=== PATIENT | female | born 1995 | race American Indian/Alaskan Native ===

== ENCOUNTER 2022-11-29 17:13 | Emergency (ER) | payer OTHER ==
[2022-11-29] MEDS ORDERED: Ketorolac 30 MG/ML SDV IVPUSH ONE (17:24)
[2022-11-29] MEDS ORDERED: Ondansetron 4 MG/2 ML SDV IVPUSH ONE (17:24)
[2022-11-29] MEDS ORDERED: Sodium Chloride 0.9% 1,000 ML IV ONE (17:24)
[2022-11-29] MEDS ORDERED: Iopamidol 612 MG/ML 100 ML Bottle IVPUSH ONE (17:29)
[2022-11-29 18:06] LABS: ANION GAP 11.7 mEq/L (7-13); CHLORIDE,CL 104 mmol/L (98-107); ESTIMATED GFR 124 mL/min (>=60); SODIUM,NA 138 mmol/L (136-145)
== END 2022-11-29 19:55 | disposition home or self-care (01) ==
LOC: DL.ED 17:13
DX: K52.9 Noninfective gastroenteritis and colitis, unspecified (principal); E03.9 Hypothyroidism, unspecified; Z88.1 Allergy status to other antibiotic agents; Z88.8 Allergy status to other drugs, medicaments and biological substances
CPT/HCPCS: 36415; 74177; 80053; 83690; 84703; 85025; 96361; 96374; 96375; 99284; J1885; J2405; J7030

== ENCOUNTER 2023-03-14 06:01 | Emergency (ER) | payer OTHER ==
[2023-03-14] MEDS ORDERED: Sodium Chloride 0.9% 10 ML Syringe FLUSH PRN (06:23)
[2023-03-14] MEDS ORDERED: Acetaminophen 500 MG Tab PO ONE (06:24)
[2023-03-14] MEDS ORDERED: Ketorolac 30 MG/ML SDV IVPUSH ONE (06:24)
[2023-03-14 06:55] LABS: BASOPHILS PERCENT AUTO 0.1 % (0.0-1.0); EOSINOPHILS PERCENT AUTO 0.7 % (1.0-3.0); HEMOGLOBIN 12.1 g/dL (12.0-16.0); LYMPHOCYTES PERCENT AUTO 17.5 % (20.5-50.1); MEAN CORPUSCULAR HEMOGLOBIN 27.4 pg (27.0-34.0); MEAN CORPUSCULAR HGB CONC 33.6 g/dL (33.0-35.0); MEAN CORPUSCULAR VOLUME 81.6 fL (80-100); MONOCYTES PERCENT AUTO 4.8 % (2-8); NEUTROPHILS PERCENT AUTO 76.9 % (42.2-75.2); PLATELET COUNT,PLT 361 10^3/uL (150-450); RED BLOOD CELL COUNT 4.41 10^6/uL (4.2-5.4); WHITE BLOOD CELL COUNT,WBC 15.4 10^3/uL (5.0-10.0)
[2023-03-14 07:06] LABS: APPEARANCE,URINE SLIGHTLY CLOUDY (CLEAR); BILIRUBIN,URINE MODERATE (NEGATIVE); COLOR,URINE DARK YELLOW (YELLOW); GLUCOSE,URINE NEGATIVE (NEGATIVE); KETONES,URINE >=160 (NEGATIVE); LEUKOCYTE ESTERASE,URINE TRACE (NEGATIVE); NITRITE,URINE NEGATIVE (NEGATIVE); OCCULT BLOOD,URINE MODERATE (NEGATIVE); PH,URINE 6.5 (5.0-9.0); PROTEIN,URINE 30 (NEGATIVE); UROBILINOGEN,URINE >=8.0 mg/dL (0.2-1.0)
[2023-03-14 07:17] LABS: LACTIC ACID 0.8 mmol/L (0.4-2.0)
[2023-03-14 07:19] LABS: BACTERIA,URINE MANY /HPF (0-FEW/HPF); EPITHELIAL CELLS,URINE MODERATE /HPF (NOT SEEN); RBC,URINE 0-5 /HPF (0-5); WBC,URINE 20-30 /HPF (0-5/HPF)
[2023-03-14 07:20] LABS: ANION GAP 15.5 mEq/L (7-13); BILIRUBIN TOTAL 1.4 mg/dL (0.2-1.0); BUN/CREATININE RATIO 8.7 (No establ ref range); CALCIUM 8.5 mg/dL (8.5-10.1); CREATININE 0.69 mg/dL (0.55-1.02); EST CRCL DRUG DOSING (CG) 132.44 mL/min; POTASSIUM,K 3.5 mmol/L (3.5-5.1); PROTEIN TOTAL,TP 7.6 g/dL (6.4-8.2)
[2023-03-14 07:21] LABS: A/G RATIO 0.65; C-REACTIVE PROTEIN 17.9 mg/dL (0.0-0.9)
[2023-03-14] MEDS ORDERED: Iopamidol 612 MG/ML 100 ML Bottle IVPUSH ONE (07:23)
== END 2023-03-14 09:01 | disposition home or self-care (01) ==
LOC: DL.ED 06:01
DX: K57.30 Diverticulosis of large intestine without perforation or abscess without bleeding (principal); N30.00 Acute cystitis without hematuria; K42.9 Umbilical hernia without obstruction or gangrene; R19.5 Other fecal abnormalities; E03.9 Hypothyroidism, unspecified; Z88.1 Allergy status to other antibiotic agents; Z88.2 Allergy status to sulfonamides; Z88.8 Allergy status to other drugs, medicaments and biological substances; Z79.899 Other long term (current) drug therapy; Z90.49 Acquired absence of other specified parts of digestive tract
CPT/HCPCS: 36415; 74177; 80053; 81001; 82150; 83605; 83690; 85025; 86140; 87040; 87077; 87086; 87186; 96374; 99284; 99285; A9270; J1885; Q9967; J3490

== ENCOUNTER 2023-03-15 15:58 | Emergency (ER) | payer OTHER ==
[2023-03-15] MEDS ORDERED: traMADol 50 MG Tab PO ONE (15:59)
[2023-03-15 18:22] LABS: BASOPHILS PERCENT AUTO 0.3 % (0.0-1.0); EOSINOPHILS PERCENT AUTO 2.8 % (1.0-3.0); HEMATOCRIT 35.4 % (37.0-47.0); HEMOGLOBIN 11.8 g/dL (12.0-16.0); LYMPHOCYTES PERCENT AUTO 30.2 % (20.5-50.1); MEAN CORPUSCULAR HEMOGLOBIN 27.1 pg (27.0-34.0); MEAN CORPUSCULAR HGB CONC 33.3 g/dL (33.0-35.0); MEAN CORPUSCULAR VOLUME 81.4 fL (80-100); MONOCYTES PERCENT AUTO 6.2 % (2-8); NEUTROPHILS PERCENT AUTO 60.5 % (42.2-75.2); PLATELET COUNT,PLT 444 10^3/uL (150-450); RED BLOOD CELL COUNT 4.35 10^6/uL (4.2-5.4); WHITE BLOOD CELL COUNT,WBC 10.4 10^3/uL (5.0-10.0)
[2023-03-15] MEDS ORDERED: Ketorolac 30 MG/ML SDV IVPUSH ONE (18:36)
[2023-03-15 18:43] LABS: ALBUMIN 3.1 g/dL (3.4-5.0); ANION GAP 13.8 mEq/L (7-13); BILIRUBIN TOTAL 0.4 mg/dL (0.2-1.0); BUN/CREATININE RATIO 11.7 (No establ ref range); C-REACTIVE PROTEIN 11.9 mg/dL (0.0-0.9); CALCIUM 8.8 mg/dL (8.5-10.1); CREATININE 0.6 mg/dL (0.55-1.02); EST CRCL DRUG DOSING (CG) 152.3 mL/min; POTASSIUM,K 3.8 mmol/L (3.5-5.1); PROTEIN TOTAL,TP 8.2 g/dL (6.4-8.2)
[2023-03-15 18:46] LABS: LACTIC ACID 0.7 mmol/L (0.4-2.0)
[2023-03-15 18:52] LABS: A/G RATIO 0.61
[2023-03-15] MEDS ORDERED: traMADol 50 MG Tab ONE (21:40)
== END 2023-03-15 21:49 | disposition home or self-care (01) ==
LOC: DL.ED 15:58
DX: K76.0 Fatty (change of) liver, not elsewhere classified (principal); E03.9 Hypothyroidism, unspecified; Z86.16 Personal history of COVID-19; Z90.49 Acquired absence of other specified parts of digestive tract; Z88.8 Allergy status to other drugs, medicaments and biological substances; Z88.2 Allergy status to sulfonamides; Z79.899 Other long term (current) drug therapy
CPT/HCPCS: 36415; 76705; 80053; 83605; 85025; 86140; 87040; 96374; 99284; A9270; J1885

== ENCOUNTER 2024-01-17 09:53 | Emergency (ER) | payer OTHER ==
[2024-01-17] MEDS: Amoxicillin/Clavulanate K 875-125 MG Tab PO ONE (11:19)
[2024-01-17] MEDS: Rabies Vaccine (Avian) 2.5 Unit Inj Kit IM ONE (11:34)
[2024-01-17] MEDS: Take Home: Amoxicillin/Clavulanate K 875-125 MG Tab, 6 Tab Pack PO ONE (11:34)
== END 2024-01-17 11:45 | disposition home or self-care (01) ==
LOC: DL.ED 09:53
DX: S61.251A Open bite of left index finger without damage to nail, initial encounter (principal); Z88.8 Allergy status to other drugs, medicaments and biological substances; Z88.2 Allergy status to sulfonamides; Z86.16 Personal history of COVID-19; Z90.49 Acquired absence of other specified parts of digestive tract; Z23 Encounter for immunization; W55.01XA Bitten by cat, initial encounter; Y93.89 Activity, other specified
CPT/HCPCS: 90675; 96372; 99282; 99283; A9270

== ENCOUNTER 2024-04-01 05:14 | Day surgery (SDC) | payer OTHER ==
[2024-04-01] MEDS ORDERED: Midazolam 1 MG/ML 2 ML SDV IV ONE (05:15)
[2024-04-01] MEDS ORDERED: fentaNYL 100 MCG/2 ML SDV IV ONE (05:15)
[2024-04-01] MEDS: Dextrose 5%-0.45% NaCl 1,000 ML IV SCH (06:01)
[2024-04-01] MEDS ORDERED: fentaNYL 100 MCG/2 ML SDV ONE (06:20)
[2024-04-01] MEDS ORDERED: Midazolam 1 MG/ML 2 ML SDV ONE (06:20)
[2024-04-01] MEDS: fentaNYL 100 MCG/2 ML SDV IV ONE ×6 (06:37→06:50)
[2024-04-01] MEDS: Midazolam 1 MG/ML 2 ML SDV IV ONE ×9 (06:38→07:05)
== END 2024-04-01 08:27 | disposition home or self-care (01) ==
LOC: DL.ENDO 05:14
PROVIDERS: ATTEND Internal Medicine Gastroenterology
DX: K64.8 Other hemorrhoids (principal); F41.9 Anxiety disorder, unspecified
CPT/HCPCS: 45380; 81025; J2250; J3010; J7042

== ENCOUNTER 2025-07-29 18:29 | Emergency (ER) | payer OTHER ==
[2025-07-29] MEDS ORDERED: Sodium Chloride 0.9% 10 ML Syringe FLUSH PRN (18:34)
[2025-07-29 18:42] LABS: BASOPHILS PERCENT AUTO 0.1 % (0.0-1.0); EOSINOPHILS PERCENT AUTO 1.7 % (1.0-3.0); LYMPHOCYTES PERCENT AUTO 31.2 % (20.5-50.1); MONOCYTES PERCENT AUTO 6.7 % (2-8); NEUTROPHILS PERCENT AUTO 60.3 % (42.2-75.2); PLATELET COUNT,PLT 336 10^3/uL (150-450); RED BLOOD CELL COUNT 4.80 10^6/uL (4.2-5.4); WHITE BLOOD CELL COUNT,WBC 14.5 10^3/uL (5.0-10.0)
[2025-07-29] MEDS: Ondansetron 4 MG/2 ML SDV IVPUSH ONE (18:43)
[2025-07-29 19:09] LABS: A/G RATIO 0.8; ALANINE AMINOTRANSFERASE,ALT 51 U/L (14-59); ASPARTATE AMNIOTRANSFERASE,AST 62 U/L (15-37); BILIRUBIN TOTAL 0.2 mg/dL (0.2-1.0); BLOOD UREA NITROGEN,BUN 13 mg/dL (7-18); CARBON DIOXIDE,CO2 28 mmol/L (21-32); CHLORIDE,CL 104 mmol/L (98-107); CREATININE 0.61 mg/dL (0.55-1.02); EST CRCL DRUG DOSING (CG) 145.83 mL/min; GLUCOSE RANDOM 53 mg/dL (70-99); POTASSIUM,K 3.3 mmol/L (3.5-5.1); PROTEIN TOTAL,TP 7.9 g/dL (6.4-8.2); SODIUM,NA 142 mmol/L (136-145)
[2025-07-29 19:14] LABS: ESTIMATED GFR 123 mL/min (>=60)
[2025-07-29 19:15] LABS: LACTIC ACID 2.1 mmol/L (0.4-2.0)
[2025-07-29 19:18] LABS: INR 0.9 (0.9-1.2)
[2025-07-29] MEDS: Iopamidol 612 MG/ML 100 ML Bottle IVPUSH ONE (19:51)
[2025-07-29] MEDS: Lactulose Soln 10 GM/15 ML 30 ML UD Cup PO ONE (20:31)
[2025-07-29] MEDS: Methylnaltrexone 12 MG/0.6 ML SDV SUBCUT ONE (20:32)
== END 2025-07-29 20:39 | disposition home or self-care (01) ==
LOC: DL.ED 18:29
DX: K59.00 Constipation, unspecified (principal); E03.9 Hypothyroidism, unspecified; Z88.8 Allergy status to other drugs, medicaments and biological substances; Z88.2 Allergy status to sulfonamides; Z79.899 Other long term (current) drug therapy; Z79.85 Long-term (current) use of injectable non-insulin antidiabetic drugs; Z86.16 Personal history of COVID-19; Z90.49 Acquired absence of other specified parts of digestive tract
CPT/HCPCS: 36415; 74177; 80053; 83605; 83690; 83735; 84484; 85025; 85610; 86140; 93005; 96372; 96374; 96375; 99285; A9270; J2405; Q9967; J1171; J2212-GY